=== PATIENT | female | born 1970 | race Caucasian/White ===

== ENCOUNTER → 2018-06-13 | Outpatient (CLI) | payer BC ==
[2018-06-13 10:37] LABS: HEMATOCRIT 40.2 % (36.0-47.0); HEMOGLOBIN 13.6 g/dl (12.0-15.5); MEAN CORPUSCULAR HEMOGLOBIN 29.9 pg (27.0-33.0); MEAN CORPUSCULAR HGB CONC 33.8 g/dl (32.0-36.5); MEAN CORPUSCULAR VOLUME 88.4 fl (80.0-96.0); PLATELET COUNT, AUTOMATED 328 10^3/uL (150-450); RED BLOOD COUNT 4.55 10^6/uL (4.00-5.40)
[2018-06-13 11:06] LABS: ALBUMIN 3.6 GM/DL (3.2-5.2); ALT/SGPT 17 U/L (12-78); BILIRUBIN,TOTAL 0.3 MG/DL (0.2-1.0); BLOOD UREA NITROGEN 12 MG/DL (7-18); CARBON DIOXIDE LEVEL 28 MEQ/L (21-32); CHLORIDE LEVEL 105 MEQ/L (98-107); CHOLESTEROL LEVEL 258 MG/DL (<200); CHOLESTEROL RISK RATIO 3.794 (<5); CREATININE FOR GFR 0.81 MG/DL (0.55-1.30); GLOMERULAR FILTRATION RATE > 60.0 (>58); GLUCOSE, FASTING 85 MG/DL (70-100); HDL CHOLESTEROL 68 MG/DL (>40); LDL CHOLESTEROL 166 MG/DL (<100); NON-HDL-C 190 MG/DL; POTASSIUM SERUM 4.2 MEQ/L (3.5-5.1); SODIUM LEVEL 139 MEQ/L (136-145); TOTAL PROTEIN 7.3 GM/DL (6.4-8.2); TRIGLYCERIDES LEVEL 118 MG/DL (<150)
[2018-06-13 11:08] LABS: HEMOGLOBIN A1c 5.5 %
[2018-06-13 11:37] LABS: TOTAL 25(OH) VITAMIN D 43.4 NG/ML (30.0-100.0)
--- NOTE | 2018-06-13 20:38 | ECGEPIP ---
Stationary ECG Study [facility] Test Date: 2018-06-13 Pat Name: BLESSING SABA Department: Room: - Gender: F Inspector: ZAMZAM : [id number] Requested By: Luis Eduardo Matamoros Order Number: [id number] Reading MD: Dexter Ramos Measurements Intervals [place] Rate: 66 P: 40 MS: 182 QRS: 21 QRSD: 93 T: 30 QT: 384 QTc: 404 Interpretive Statements SINUS RHYTHM Within normal limits. No prior ECG available for comparison at the time of interpretation. Electronically Signed On 06-13-2018 20:38:15 EST by Dexter Ramos
--- NOTE | 2018-06-14 02:35 | REP ---
Clinical: Anemia . Comparison: None . Technique: PA and lateral. Findings: Moderate hiatal hernia identified. The blossom and cardiac silhouette are normal. The lung tavera are clear and without acute consolidation, effusion, or pneumothorax. The skeletal structures are intact and normal. Impression: 1. Hiatal hernia. 2. No acute cardiopulmonary process. Electronically Signed by Matias Schmitz MD 06/14/2018 02:27 A
== END ==
LOC: M LAB 09:45
PROVIDERS: ATTEND Family Medicine
DX: D64.9 Anemia, unspecified (principal)

== ENCOUNTER → 2023-09-27 | Outpatient (CLI) | LOC: M SOG 10:39 | PROVIDERS: ATTEND Physician Assistant | DX: M25.572 Pain in left ankle and joints of left foot (principal) ==

== ENCOUNTER → 2023-10-07 | Outpatient (CLI) | payer OTHER | LOC: M SOG 15:00 | PROVIDERS: ATTEND Physician Assistant | DX: S93.402A Sprain of unspecified ligament of left ankle, initial encounter (principal); M25.572 Pain in left ankle and joints of left foot; M20.12 Hallux valgus (acquired), left foot; Y93.9 Activity, unspecified; Y92.9 Unspecified place or not applicable ==

== ENCOUNTER → 2023-10-22 | Outpatient (CLI) | payer OTHER | LOC: M SOG 07:58 | PROVIDERS: ATTEND Physician Assistant | DX: S93.402A Sprain of unspecified ligament of left ankle, initial encounter (principal); W18.30XA Fall on same level, unspecified, initial encounter; Y92.009 Unspecified place in unspecified non-institutional (private) residence as the place of occurrence of the external cause ==